=== PATIENT | female | born 1970 | race Caucasian/White ===

== ENCOUNTER 2020-11-21 17:22 | Outpatient (CLI) | payer OTHER, SELFPAY ==
--- NOTE | ~2020-11-21 | XR_ITS ---
EXAMINATION: XR chest 2V DATE: 11/21/2020 17:40 INDICATION: Cough and congestion TECHNIQUE: PA and lateral views of the chest were obtained. COMPARISON: Chest radiograph dated 10/22/2018 FINDINGS: Unchanged mild hyperexpansion of the lungs which remain clear with no focal airspace opacities, pulmo nary edema, pleural effusion or pneumothorax. The cardiomediastinal silhouette is normal. Ossified ri ght hilar and mediastinal lymph nodes consistent with old granulomatous disease. Mild thoracic spondy losis. IMPRESSION: 1. No acute cardiopulmonary disease. Reviewed, dictated and finalized at location A. LUTION REP
== END 2020-11-21 17:23 | disposition home or self-care (01) ==
PROVIDERS: PCP Internal Medicine; Visit Provider Internal Medicine
DX: R05 Cough (principal)
CPT/HCPCS: 71046

== ENCOUNTER 2020-11-30 08:37 | Outpatient (CLI) | payer OTHER, SELFPAY ==
--- NOTE | 2020-11-30 12:30 | WPDPFTINT ---
PFT Interpretation PFT Interpretation: This PFT met all criteria for ATS standards and reproducibility FEV/FVC post bronchodilator 78% FEV1 79% FVC 77% TLC 76% RV 66% RV/TLC 31% DLCO 75% when adjusted for alveolar volume but not adjusted for hemoglobin Flow volume were normal Impression: A restrictive ventilatory defect is present with mildly reduced diffusion capacity. Clinical correlation is advised.
== END 2020-11-30 08:38 | disposition home or self-care (01) ==
PROVIDERS: PCP Internal Medicine; Visit Provider Internal Medicine
DX: J45.909 Unspecified asthma, uncomplicated (principal); R94.2 Abnormal results of pulmonary function studies
CPT/HCPCS: 94060; 94726; 94729

== ENCOUNTER 2021-03-15 07:40 | Outpatient (CLI) | payer OTHER, SELFPAY ==
--- NOTE | ~2021-03-15 | CT_ITS ---
EXAMINATION: CT chest high resolution [facility] EXAM DATE: 03/15/2021 08:46 INDICATION: J98.4 - Other disorders of lung. Cough. Restrictive lung disease. TECHNIQUE: Spiral CT of the chest without. HRCT. Axial, coronal and sagittal images of the chest wer e reviewed. Coronal maximum intensity pixel images of chest reviewed. The dose-length product (DLP) for this examination was 131.31 mGy-cm. The exposure was tailored according to patient size (auto m A exposure control), and iterative reconstruction (ASIR) was used as additional dose reduction techni que. There is no prior study for comparison. FINDINGS: The lungs are hyperinflated which can be seen with chronic obstructive pulmonary disease ( a clinical diagnosis of functional impairment), but is not diagnostic of it. No intralobular septal t hickening on the HRCT. Right hilar and mediastinal calcifications, granulomas. There are no pleural or pericardial effusions. Tracheobronchial tree is patent. There is no mediastinal, hilar or axil guzman lymphadenopathy. There is no pneumothorax. Narrow cardiac silhouette from the hyperinflated lungs. No evidence of coronary arterial calcification. There is a 4.4 cm mass in left liver lobe medial segment, and a 2.5 cm mass in right liver lobe poste riorly, could be metastatic disease or benign liver lesions. Possible 3rd lesion identified in the le ft liver lobe lateral segment. Abdomen MRI examination without and with contrast is indicated. There is thoracic spondylosis without osteoblastic or osteolytic lesions identified. IMPRESSION: 1. At least 2 liver indeterminate masses; recommend abdomen MRI examination without and with contras t. 2. Severe hyperinflation. I discussed liver masses and recommendation with Dr. Cyrus Lancaster at 03/15/2021 10:48 CDT. Reviewed, dictated and finalized at location B. IMPRESSION: 1. At least 2 liver indeterminate masses; recommend abdomen MRI examination wi thout and with contrast. 2. Severe hyperinflation. I discussed liver masses and recommendation with Dr. Cyrus Lancaster at 021 10:48 CDT.
== END 2021-03-15 07:41 | disposition home or self-care (01) ==
PROVIDERS: PCP Internal Medicine; Visit Provider Internal Medicine Pulmonary Disease
DX: J98.4 Other disorders of lung (principal); R91.8 Other nonspecific abnormal finding of lung field
CPT/HCPCS: 71250

== ENCOUNTER 2021-03-22 06:33 | Outpatient (CLI) | payer OTHER, SELFPAY ==
--- NOTE | ~2021-03-22 | MR_ITS ---
EXAMINATION: MR abdomen wo/w con DATE: 03/22/2021 07:45 INDICATION: Liver mass. TECHNIQUE: Magnetic resonance imaging (MRI) of the abdomen was performed without and with 12 mL Multi Deena intravenous contrast. Sequences included coronal T2-weighted FS FSE, coronal and axial FS FIEST A, axial T2-weighted FSE, coronal LAVA-flex, axial STIR FSE, axial DWI, axial dual-echo T1-weighted F SPGR, and axial LAVA. Postcontrast sequences included coronal LAVA-flex and a time course of axial LA VA. COMPARISON: Chest CT 03/15/2021 FINDINGS: There are 3 masses in the liver with interrupted peripheral puddling of contrast, consistent with hem angiomas. The largest measures 4.3 cm. There is a 3 mm cyst in the liver. The gallbladder, spleen, pa ncreas, adrenal glands, and kidneys are normal. There are no dilated loops of bowel. There is a 4.5 c m cyst in the right adnexa, likely a follicular cyst. There are no pathologically enlarged lymph node s. There is no free intraperitoneal fluid. IMPRESSION: 1. Benign hemangiomas in the liver. 2. 4.5 cm cyst in the right adnexa, likely a follicular cyst. If the patient is premenopausal, no fol low-up is needed. If the patient is postmenopausal, pelvis ultrasound is recommended in one year. Reviewed, dictated and finalized at location A. IMPRESSION: 1. Benign hemangiomas in the liver. 2. 4.5 cm cyst in the right adnexa, likely a follicular cyst. If the patient is premenopausal, no follow-up is needed. If the patient is postmenopausal, pelvi s ultrasound is recommended in one year.
[2021-03-22 07:07] LABS: Estimated Glomerular Filt Rate > 60
== END 2021-03-22 06:34 | disposition home or self-care (01) ==
PROVIDERS: PCP Internal Medicine; Visit Provider Internal Medicine
DX: R16.0 Hepatomegaly, not elsewhere classified (principal); N85.8 Other specified noninflammatory disorders of uterus
CPT/HCPCS: 74183; A9577

== ENCOUNTER 2021-05-01 12:26 | Outpatient (CLI) | payer OTHER, SELFPAY ==
--- NOTE | 2021-05-01 17:28 | WPDMETH ---
Methacholine Procedure Perform Procedure Performed Methacholine Challenge Methacholine Challenge This is a methacholine challenge test. The test was performed and interpreted in accordance with the 1999 [place] [employer] guidelines. The test was performed with increasing doses of nebulized methacholine using a 2 minute tidal breathing protocol. The best post-methacholine FEV1 values were used to calculate the change from the post diluent FEV1. Findings: Baseline FEV1 2.19 L, 69% predicted. Post diluent FEV1 2.15 L Post 0.025 mg/ml methacholine FEV1 2.19 L, increased 2% Post 0.25 mg/mL methacholine FEV1 2.19 L, increased 2% Post 2.5 mg/mL methacholine FEV1 2.16 L, decreased 0% Post 10 mg/mL methacholine FEV1 2.11 L, decreased 2% Post 25 mg/mL methacholine FEV1 2.09 L, decreased 3% Post albuterol nebulization FEV1 2.08 L Impression: The PC20 is >25 mg/ml which is categorized as normal bronchial responsiveness. There are no prior methacholine challenge studies for comparison
== END 2021-05-01 12:27 | disposition home or self-care (01) ==
LOC: ANHPFT 12:26
PROVIDERS: PCP Internal Medicine; Visit Provider Internal Medicine Pulmonary Disease
DX: J45.909 Unspecified asthma, uncomplicated (principal)
CPT/HCPCS: 94070; J7674

== ENCOUNTER → 2021-09-22 07:43 | Outpatient (CLI) | payer OTHER, SELFPAY ==
--- NOTE | ~2021-09-22 | MM_ITS ---
EXAMINATION: MM screening [facility] w christopher HISTORY: Screening mammogram TECHNIQUE: Craniocaudal and mediolateral oblique 3-D tomosynthesis images were obtained and synthetic 2-D images were generated. CAD analysis was submitted and interpreted. COMPARISON: 07/06/2015 BREAST PARENCHYMAL COMPOSITION: The breasts are heterogeneously dense, which may obscure small masses . FINDINGS: There is no evidence of suspicious mass, calcification, or architectural distortion to sugg est malignancy in either breast. There has been no suspicious interval change. IMPRESSION: 1. No mammographic evidence of malignancy. 2. Recommend routine screening mammography in one year. BI-RADS Category 1: Negative Reviewed, dictated and finalized at location A. BACK OPERATOR
== END ==
PROVIDERS: PCP Registered Nurse; Visit Provider Obstetrics & Gynecology
DX: Z12.31 Encounter for screening mammogram for malignant neoplasm of breast (principal)
CPT/HCPCS: 77063; 77067

== ENCOUNTER 2022-04-11 07:30 | Outpatient (CLI) | payer OTHER, SELFPAY ==
--- NOTE | ~2022-04-11 | XR_ITS ---
EXAMINATION: XR chest 2V 04/11/2022 07:55 INDICATION: Shortness of breath. History of asthma. PROCEDURE: 2 view chest COMPARISON: 11/21/2020 FINDINGS: The lungs are clear. The cardiomediastinal silhouette is within normal limits. There are no pleural effusions. There is no pneumothorax suspected. IMPRESSION: 1: NO ACUTE CARDIOPULMONARY DISEASE. Reviewed, dictated and finalized at location A.
== END 2022-04-11 07:31 | disposition home or self-care (01) ==
PROVIDERS: PCP Registered Nurse; Visit Provider Nurse Practitioner Family
DX: R06.02 Shortness of breath (principal)
CPT/HCPCS: 71046

== ENCOUNTER 2022-10-11 14:19 | Outpatient (CLI) | payer OTHER, SELFPAY ==
--- NOTE | ~2022-10-11 | MR_ITS ---
EXAMINATION: MR hand RT wo/w con DATE: 10/11/2022 16:50 INDICATION: Right hand joint swelling. Autoimmune thyroiditis. TECHNIQUE: Magnetic resonance imaging (MRI) of the right hand was performed without and with 11 mL Mu ltiHance intravenous contrast. COMPARISON: None. FINDINGS: Bone alignment is normal. No fracture. There is a type II lunate. There is subchondral britney a-like marrow signal intensity in distal ulna and proximal hamate. There are tiny osteophytes at firs t carpometacarpal joint and the second-fifth distal interphalangeal joints. There is no synovitis. Th e flexor and extensor tendons are normal. IMPRESSION: 1. Mild polyarticular osteoarthritis. 2. No synovitis to suggest inflammatory arthropathy. Reviewed, dictated and finalized at location A. RER PETROLEUM REFINERY
--- NOTE | ~2022-10-11 | MR_ITS ---
EXAMINATION: MR hand LT wo/w con DATE: 10/11/2022 16:50 INDICATION: Left hand joint swelling. Autoimmune thyroiditis. TECHNIQUE: Magnetic resonance imaging (MRI) of the left hand was performed without and with 11 mL Mul tiHance intravenous contrast. COMPARISON: None. FINDINGS: Bone alignment is normal. No fracture. There are tiny osteophytes at first carpometacarpal joint and second-fourth distal interphalangeal joints. There is subchondral edema-like marrow signal intensity in distal ulna and proximal lunate. There is no synovitis. The flexor and extensor tendons are normal. IMPRESSION: 1. Mild polyarticular osteoarthritis. No evidence of inflammatory arthropathy. Reviewed, dictated and finalized at location A. OR GRAPHIC DESIGNER
== END 2022-10-11 14:20 | disposition home or self-care (01) ==
PROVIDERS: PCP Registered Nurse
DX: E06.3 Autoimmune thyroiditis (principal); R76.8 Other specified abnormal immunological findings in serum; M19.042 Primary osteoarthritis, left hand; M19.041 Primary osteoarthritis, right hand
CPT/HCPCS: 73220; A9577